=== PATIENT | female | born 1955 | race African-American/Black ===

== ENCOUNTER → 2017-04-04 | Outpatient (CLI) | payer BC ==
[~2017-04-04] MED LIST: AMLOPIDINE PO; DIOVAN PO; HCTZ PO; PRILOSEC 20MG20 MG PO; TRIEST PO
== END ==
LOC: MC.RAD 12:59
DX: Z12.31 Encounter for screening mammogram for malignant neoplasm of breast (principal)

== ENCOUNTER → 2018-05-08 | Outpatient (CLI) | payer BC | LOC: MC.RAD 10:58 | DX: Z12.31 Encounter for screening mammogram for malignant neoplasm of breast (principal) ==

== ENCOUNTER → 2019-07-06 | Outpatient (CLI) | payer BC | LOC: MC.RAD 11:00 | DX: Z12.31 Encounter for screening mammogram for malignant neoplasm of breast (principal) ==

== ENCOUNTER → 2020-07-07 | Outpatient (CLI) | payer BC | LOC: MC.RAD 10:45 | DX: Z12.31 Encounter for screening mammogram for malignant neoplasm of breast (principal) ==

== ENCOUNTER → 2020-07-10 | Outpatient (CLI) | payer BC | LOC: MC.RAD 10:58 | DX: N63.41 Unspecified lump in right breast, subareolar (principal) ==

== ENCOUNTER → 2021-07-27 | Outpatient (CLI) | payer BC | LOC: MC.RAD 13:00 | DX: Z12.31 Encounter for screening mammogram for malignant neoplasm of breast (principal) ==

== ENCOUNTER → 2022-08-09 | Outpatient (CLI) | payer BC | LOC: MC.RAD 10:54 | DX: Z12.31 Encounter for screening mammogram for malignant neoplasm of breast (principal) ==

== ENCOUNTER 2024-02-10 08:04 | Day surgery (SDC) | payer BC ==
[2024-02-10] VITALS (9 sets, daily range): BP systolic 146–188; BP diastolic 88–118; PULSE 63–86; TEMP 98
[~2024-02-10] VITALS: Ht 167.6 cm; Wt 97.0 kg
[2024-02-10] MEDS ORDERED: 1/2 NS 1,000 ML IV SCH (08:30)
[2024-02-10 09:02] LABS: INR 1.1 (0.8-3.0); PROTHROMBIN TIME 11.8 SECONDS (9.7-12.8)
[2024-02-10 09:04] LABS: PARTIAL THROMBOPLASTIN TIME 31.9 SECONDS (26.0-37.0)
[2024-02-10] MEDS ORDERED: MAG-OX 400400 MG/TAB PO (09:06)
[2024-02-10] MEDS ORDERED: ASPIRIN 81M81 MG/TA2 PO (09:07)
[2024-02-10 09:09] LABS: CALCIUM 9.3 mg/dL (8.4-10.2); CREATININE, serum 0.82 mg/dL (0.57-1.11); HEMATOCRIT 38.8 % (37.0-47.0); HEMOGLOBIN 12.5 g/dl (12.5-16.0); MEAN CELL VOLUME 88 fl (80.0-100.0); MEAN CORPUSCULAR HEMOGLOBIN 28 pg (27-31); MEAN CORPUSCULAR HGB CONC 32 g/dl (33.0-37.0); MEAN PLATELET VOLUME 9.9 fl (7.4-10.4); PLATELET COUNT 302 K/mm3 (130-400); POTASSIUM 3.9 mEq/L (3.5-4.5); RED BLOOD COUNT 4.42 M/mm3 (4.10-5.30); REDCELL DISTRIBUTION WIDTH-CV 14.5 % (11.5-14.5)
[2024-02-10] MEDS ORDERED: B-121000 MCG PO (09:10)
[2024-02-10] MEDS ORDERED: K-DUR20 MEQ PO (09:10)
[2024-02-10] MEDS ORDERED: COZAAR100 MG PO (09:13)
--- NOTE | 2024-02-10 11:10 | NUR ---
Please see merge documentation for record of interventions, vitals and medications administered during left heart cath with Dr. Ruiz.
[2024-02-10] MEDS ORDERED: Iohexol 350 - 100 ML VIAL INCOR ONE (11:14)
[2024-02-10] MEDS ORDERED: niCARdipine (Cath Lab) 100 MCG/ML 10 ML VIAL IA SCH (11:15)
[2024-02-10] MEDS ORDERED: Heparin 1,000 UNITS/ML 10 ML Multi-Dose VIAL IV SCH (11:16)
[2024-02-10] MEDS ORDERED: fentaNYL 50 MCG/ML 2 ML VIAL IV SCH (11:17)
[2024-02-10] MEDS ORDERED: Midazolam 2 MG/2 ML VIAL IV SCH (11:18)
--- NOTE | 2024-02-10 11:37 | NUR ---
Zara is transferred back to rm 10 in express unit. She is drowsy, but easily arousable. reg and unlabored respirations. stable vitals. TR band to rt wrist, no evidence of bleeding, cms intact distal. set up for post procedure vitals. sister at bs. call light in reach. bs report and handoff of care to Harriett ALCANTAR.
[2024-02-10] MEDS ORDERED: EPA FISH OIL1 SGL PO (13:13)
--- NOTE | 2024-02-10 15:59 | NUR ---
Pt ambulated to EU10 with a steady gait. Pt was accompanied by kasie sister. Pt was scheduled for a [facility]. Consent for the procedure signed. EKG done. IV started, labs drawn. Pt was prepped by a quality assurance lab technician nurse and taken to the quality assurance lab technician for the procedure. Post procedure the pt came back to EU10. Right radial wrist site was assessed, no bleeding and forearm was soft to the touch with no tenderness. Pt was offered something to eat and drink. Food was ordered and given a water and coffee to drink. Pt was bedrest for 2 hrs, at the start of the 3rd hr, air was slowly taken out of the right radial wrist band. 2 mls about every 15 mins. During this time no bleeding ocurred. Once all the air was released a band-aid was placed on the site and the deflated band was reapplied as a reminder to limit extremity use. Pt was given discharge education and information. No questions at this time. IV dc'd and wrapped with coban. Pt exited the unit by wheelchair to sisters car.
== END 2024-02-10 14:42 | disposition home or self-care (01) ==
LOC: COL.CAR 08:04
PROVIDERS: Internal Medicine Cardiovascular Disease
DX: R94.39 Abnormal result of other cardiovascular function study (principal); I10 Essential (primary) hypertension; G47.39 Other sleep apnea; E78.00 Pure hypercholesterolemia, unspecified; E66.9 Obesity, unspecified; Z68.35 Body mass index [BMI] 35.0-35.9, adult
CPT/HCPCS: C1769; J1644; J2250; J2404; J3010; Q9967